=== PATIENT | female | born 1955 | race Caucasian/White ===

== ENCOUNTER → 2023-10-02 | Outpatient (CLI) | payer MEDICARE, SELFPAY ==
--- NOTE | 2023-10-02 12:47 | RAD_ITS ---
STUDY: X-RAY CHEST REASON FOR EXAM: Female, 68 years old. Shortness of breath. Cough. TECHNIQUE: Frontal and lateral views of the chest. COMPARISON: None. FINDINGS: Hyperinflation. There is no demonstrated pleural abnormality. Borderline cardiomegaly. Normal mediastinum and jeffrey. Normal visualized pulmonary arteries. Aortic tortuosity with calcification. Thoracic osteopenia with diffuse spondylosis and increased kyphosis. Calcified left breast implant. No abnormality of the visualized soft tissue structures of the upper abdomen. RAD/Chest PA and Lateral IMPRESSION: Mild hyperinflation with borderline cardiomegaly. No active or acute cardiopulmonary disease. Electronically Signed: Leighton Bryant MD at 13:10 EDT ,
== END | disposition home or self-care (01) ==
LOC: MTRAD 12:41
PROVIDERS: Referring Provider Internal Medicine Pulmonary Disease; Visit Provider Internal Medicine Pulmonary Disease
DX: R06.02 Shortness of breath (principal); R05.9 Cough, unspecified
CPT/HCPCS: 71046

== ENCOUNTER 2024-09-22 20:51 | Emergency (ER) | payer MEDICARE, SELFPAY ==
[2024-09-22 20:52] VITALS: BP 190/100; PULSE 98; RESP 24; TEMP 36.6; O2SAT 96; BMI 28.7
--- NOTE | 2024-09-22 21:04 | EDS_ITS ---
HPI History of Present Illness Chief Complaint: Flank Pain Detail of Chief Complaint: Patient has pain anterior to posterior axillary line R side ribs 8, 9 &10 Informant: patient Onset/Context/Timing Onset: Days Timing: Intermittent Quality: Pain Location: Right lower ribs anterior and posterior axillary line Current Severity: Mild Maximum Severity: Moderate Worsened by: Certain movements Relieved by: Lying on her left side Associated Symptoms Associated Symptoms: Productive cough Narrative Narrative: Patient is a 69-year-old woman. She has history of COPD. She is on home oxygen. She presents with right-sided lower rib cage pain that started greater than 1 week ago. Was present for 3 days. It stopped. Approximately 3 days ago it started. She denies fever, chills night sweats. She does have a cough. The cough is productive. She has white-colored sputum. She denies hemoptysis. Denies pain with breathing. Pain is worse if she lies on her stomach or right side alleviated if she lies on her left side. She denies fever, chills or night sweats. She denies rhinorrhea, congestion or postnasal drainage. She denies sore throat. She denies intolerance to greasy or fried foods. She denies pain rating through to her back. She denies history of renal ureterolithiasis. She denies dysuria, frequency, urgency or hematuria. She denies headache, visual, ocular auditory symptoms. She denies neurologic symptoms i.e. abnormal sensation, muscle weakness or problems with coordination. She denies history of VTE. She denies leg pain, swelling or discoloration. Prior similar symptoms: No Recent Illness/Hospitalization: No PFSH PFSH Home Medications ?Medication ?Instructions ?Recorded ?Last Taken ?Type hydrocodone-acetaminophen 5-325mg 1 tab PO Q6H PRN PRN Pain 3 days 09/22/24 Unknown Rx 5mg-325mg #10 TABLETS lisinopril 10 mg tablet 10 mg PO DAILY #30 tabs 09/01 09/24 Unknown Rx Allergy/AdvReac Type Severity Reaction Status Date / Time No Known Allergies Allergy Verified 09/22/24 20:52 Social History Smoking Status: Never smoker ROS ROS ED Constitutional Constitutional ED: Denies chills, fever(s), subjective or sweats Eyes Eyes: Denies blurry vision or change in vision ENT ENT ED: Denies ear pain, rhinorrhea or sore throat Cardiovascular Cardiovascular: Denies chest pain, orthopnea, palpitations or paroxysmal nocturnal dyspnea Respiratory/Chest Respiratory/Chest: Reports cough, dyspnea, dyspnea on exertion and sputum; Denies orthopnea or paroxysmal nocturnal dyspnea Gastrointestinal Gastrointestinal: Reports other Details: Repeat HPI narrative for greater detail ; Denies abdominal pain, diarrhea, nausea or vomiting Genitourinary Genitourinary ED: Reports other Details: See HPI narrative for more detail ; Denies dysuria, hematuria or urinary frequency Musculoskeletal Musculoskeletal: Denies arthralgias, back pain or myalgias Integumentary Denies rash Neurologic Neurologic: Denies paresthesias or weakness Hematologic/Lymphatic Hematologic/Lymphatic: Reports systems reviewed and no addt'l complaints, except as documented EXAM Physical Exam Const Vital Signs: 09/22/24 20:52 09/22/24 21:51 09/22/24 22:00 Temperature 97.8 F Temperature Source Temporal Pulse Rate 98 89 90 Respiratory Rate 24 H 20 H 20 H Blood Pressure 190/100 H 172/80 H 172/80 H Blood Pressure Mean 130 110 110 Pulse Ox 96 98 98 Oxygen Delivery Method Nasal Cannula Nasal Cannula Nasal Cannula Oxygen Flow Rate (L/min) 4 Positive well nourished and well developed General Appearance ED: well developed and NAD; Negative for cyanotic, diaphor etic or pallor HEENT Reports moist mucous membranes HEENT Narrative: Head is atraumatic and normocephalic. Ears are normal. Nares are patent. Posterior pharynx is normal. Eyes PERRL and EOMs intact bilaterally General Eye ED: Negative for pale conjunctiva or scleral icterus Neck no lymphadenopathy, supple and no JVD Chest Wall inspection of chest normal and palpation of chest normal Resp normal respiratory effort and clear to auscultation bilaterally Cardio regular rate, regular rhythm, S1 normal heart sound, S2 normal heart sound and no murmurs GI normal to inspection, nondistended, normoactive bowel sounds, non-distended and no masses; Negative for non-tender or hepatosplenomegaly GI Narrative: There is tenderness in the right upper quadrant with equivocal Garcia sign. There is no palpable pulsatile mass. There is no abdominal bruit. There is no evidence of trauma. Palpation: soft Back/Spine no CVA tenderness Cervical Spine: Negative for cervical spine tenderness Thoracic Spine / Upper Back: Negative for thoracic spinal tenderness Lumbar Spine / Lower Back: Negative for lumbar spinal tenderness Extremity Extremity Narrative: There is no clubbing or cyanosis. Neuro oriented x3 and CN's II-XII intact bilaterally Sensorium / Orientation: alert Psych mental status grossly normal Skin Skin Narrative: Patient has dry skin. She also has a rash that she has been applying prednisone cream to. She states that was prescribed by her doctor. General Skin Exam: Negative for jaundice or pallor MDM MDM MDM Narrative Medical decision making narrative: Patient's blood pressure is elevated. Will need to ask if she is on medicine for elevated blood pressure. In light of the fact she has a cough that is productive with right-sided chest pain will obtain chest x-ray to assess for right lower lobe pneumonia. The pain is not pleuritic. Since she has a clinical Garcia sign liver enzymes were obtained. Patient is on Synthroid for hypothyroidism. She discontinued taking her lisinopril. She is on a beta-hank. She has been on a beta-hank for 20 years. Lab Data Attestation: I reviewed the patient's lab results. Lab results narrative: CBC is normal. Comprehensive metabolic panel and lipase are both normal with the exception of slightly elevated glucose of 108. Labs: Laboratory Results - last 24 hr 09/22/24 21:30 WBC 9.1 RBC 4.21 Hgb 12.3 Hct 38.4 MCV 91.2 MCH 29.2 MCHC 32.0 RDW Std Deviation 41.5 RDW Coeff of [place] 12.5 Plt Count 322 MPV 8.8 Immature Gran % (Auto) 0.300 Neut % (Auto) 54.9 Lymph % (Auto) 27.9 [place] % (Auto) 12.6 H Eos % (Auto) 3.6 Baso % (Auto) 0.7 Absolute Neuts (auto) 5.0 Absolute Lymphs (auto) 2.54 Nucleated RBC % 0 Sodium 143 Potassium 4.2 Chloride 104 Carbon Dioxide 29.4 Anion Gap 10 BUN 23 H Creatinine 0.82 Estim Creat Clear Calc 59.00 Est GFR (MDRD) Non-Af 77 BUN/Creatinine Ratio 28.3 H Glucose 108 H Calcium 10.1 Total Bilirubin 0.16 AST 26 ALT 21 Alkaline Phosphatase 96 Total Protein 7.5 Albumin 4.3 Globulin 3.2 Albumin/Globulin Ratio 1.3 Lipase 54 Radiography Chest X-Ray - ED: 2 View, Read by ED Physician (There is a implant noted in the left. There is internally reviewed interpreted by me at 2159.), Unchanged, Heart, Lungs, Mediastinum, Bony Structures, No Acute Disease and Chronic Changes Treatment and Re-Evaluation :: I was informed by nurse at 2201 that patient states when she was in x-ray she felt something pop and is in pain. She requested pain medicine. [place] was ordered. Comprehensive metabolic panel is pending. If normal plan is to discharge to home with right-sided chest pain of uncertain etiology. Suspect this is a muscular skeletal etiology. Disposition to be made by the evening physician. Patient's labs resulted at 20-25. Disposition was made per me. Patient was discharged to home with pain medicine, lisinopril and she was told the cause of her pain is uncertain. Discharge Plan Triage Chief Complaint: Flank Pain ED Provider: David Espinosa Dx/Rx/DC Orders Clinical Impression: Right-sided chest pain, Asymptomatic hypertension, Chronic hypoxic respiratory failure, History of hypothyroidism, Noncompliance with medication regimen Instructions: ED Chest Pain, Uncertain Cause, ED Hypertension, Established Prescriptions: New hydrocodone-acetaminophen 5-325 mg tablet 1 tab PO Q6H PRN PRN (Reason: Pain) 3 Days Qty: 10 0RF lisinopril 10 mg tablet 10 mg PO DAILY Qty: 30 2RF Primary Care Provider: Roddy Elkins Referrals: Roddy Elkins MD [Primary Care Provider] - Print Language: [place] Disposition Disposition: Home, Self Care
[2024-09-22 21:43] LABS: Absolute Lymphocyte Count 2.54 X10^3/uL (0.83-4.51); Basophil# 0.06 X10^3/uL; Basophil% 0.7 % (0-1); Eosinophil# 0.33 X10^3/uL; Eosinophils% 3.6 % (0-5); Hematocrit 38.4 % (37-47); Hemoglobin 12.3 g/dL (12.0-15.0); Lymphocyte # 2.54 X10^3/ul (0.83-4.51); Lymphocyte % 27.9 % (19-41); Mean Corpuscular Hgb 29.2 pg (27.0-32.0); Mean Corpuscular Volume 91.2 fL (81-99); Mean Platelet Vol. 8.8 fl (6.2-12.0); Monocyte# 1.15 X10^3/uL; Monocyte% 12.6 % (0-10); NRBC Flagged by Analyzer 0 % (0-5); Neutrophil % 54.9 % (47-70); Platelet Count 322 K/mm3 (150-450); RBC Distribution Width CV 12.5 % (11.6-14.6); RBC Distribution Width SD 41.5 fl (35.1-43.9); Red Blood Count 4.21 M/mm3 (4.2-5.4); White Blood Count 9.1 K/mm3 (4.4-11.0)
--- NOTE | 2024-09-22 21:45 | RAD_ITS ---
PROCEDURE: CHEST PA AND LATERAL 09/22/2024 REASON FOR EXAM: PRODUCTIVE COUGH TECHNIQUE: Frontal view of the chest. COMPARISON: 10/02/2023 FINDINGS: Hyperinflated lungs compatible with COPD with bronchial thickening. Calcified breast implant on the left. Demineralized bones. No pneumothorax or pleural effusion. Stable examination RAD/Chest PA and Lateral IMPRESSION: Features of emphysema and chronic bronchitis. No localizing infiltrate. [place] otherwise stable. Reading Location: [id number]
[2024-09-22 21:51] VITALS: BP 172/80; PULSE 89; RESP 20; O2SAT 98
[2024-09-22 22:00] VITALS: BP 172/80; PULSE 90; RESP 20; O2SAT 98
[2024-09-22] MEDS: HYDROcodone Bitartrate/Apap 5/325 Tablet PO (22:16)
[2024-09-22 22:24] LABS: ALB/GLOB Ratio 1.3 RATIO (0.9-2.4); AST(SGOT) 26 U/L (<=31); Alanine Aminotransfer ALT/SGPT 21 U/L (<=34); Albumin, Serum 4.3 g/dL (3.4-4.8); Alkaline Phosphatase 96 U/L (35-104); Anion Gap 10 (5-15); BUN 23 mg/dL (4-19); BUN/Creat Ratio 28.3 RATIO (10-20); Calcium,Total 10.1 mg/dL (7.6-11.0); Carbon Dioxide 29.4 mmol/L (21.0-32.0); Chloride 104 mmol/L (98-108); Creatinine, Serum 0.82 mg/dL (0.70-1.20); EST Glomerular Filtration Rate 77 (>60); Globulin 3.2 g/dL (2.2-4.2); Glucose 108 mg/dL (70-99); Lipase 54 U/L (13-75); Potassium 4.2 mmol/L (3.3-5.1); Protein, Total 7.5 g/dL (5.9-8.4); Sodium Level 143 mmol/L (133-145); Total Bilirubin 0.16 mg/dL (0.00-1.30)
[2024-09-22] MEDS: Lisinopril 10 MG Tablet PO (22:41)
[2024-09-22 23:00] VITALS: BP 174/102; PULSE 87; RESP 16; TEMP 37.1; O2SAT 97
== END 2024-09-22 23:29 | disposition home or self-care (01) ==
PROVIDERS: Emergency Provider Emergency Medicine; Visit Provider Emergency Medicine
DX: R07.9 Chest pain, unspecified (principal); J96.11 Chronic respiratory failure with hypoxia; J44.9 Chronic obstructive pulmonary disease, unspecified; E03.9 Hypothyroidism, unspecified; I10 Essential (primary) hypertension; Z91.148 Patient's other noncompliance with medication regimen for other reason
CPT/HCPCS: 71046; 80053; 83690; 85025; 99285